=== PATIENT | female | born 2000 | race Caucasian/White ===

== ENCOUNTER 2021-01-19 11:42 | Emergency (ER) | payer MEDICAID ==
[~2021-01-19] VITALS: Ht 170.2 cm; Wt 61.0 kg
[2021-01-19] MEDS ORDERED: IBUPROFEN 400MG TABLET PO ONE (12:45)
[2021-01-19] MEDS ORDERED: BACITRACIN ZINC OINT UDPKT TOP ONE (12:45)
[2021-01-19] MEDS ORDERED: ACETAMINOPHEN 325MG TABLET PO ONE (12:45)
[2021-01-19 12:53] VITALS: BP 115/67
[2021-01-19] MEDS ORDERED: BO1 TP (13:49)
== END 2021-01-19 14:11 | disposition home or self-care (01) ==
LOC: ER 11:42
DX: T23.271A Burn of second degree of right wrist, initial encounter (principal); T23.222A Burn of second degree of single left finger (nail) except thumb, initial encounter; T59.0X1A Toxic effect of nitrogen oxides, accidental (unintentional), initial encounter; Y93.89 Activity, other specified; Y92.89 Other specified places as the place of occurrence of the external cause
CPT/HCPCS: 16000; 16020; 99283; 99284

== ENCOUNTER 2021-03-06 09:03 | Emergency (ER) | payer MEDICAID, OTHER ==
[~2021-03-06] VITALS: Ht 170.2 cm; Wt 61.0 kg
[~2021-03-06 09:03] MED LIST: BO1 TP
[2021-03-06] MEDS ORDERED: ONDANSETRON HCL 4MG/2ML INJ IV STA (09:43)
[2021-03-06] MEDS ORDERED: MORPHINE SULFATE 4 MG/ML CPJ (NOT FOR IM USE) IV STA (09:43)
[2021-03-06] MEDS ORDERED: SODIUM CHLORIDE 0.9% 1,000 ML IV ONE (09:45)
[2021-03-06 10:08] LABS: BASOPHILS % 0.6 % (0.0-2.0); EOSINOPHILS % 1.3 % (0.0-5.0); HEMATOCRIT. 39.8 % (36.0-48.0); HEMOGLOBIN. 13.6 g/dL (12.0-16.0); LYMPHOCYTES % 34.1 % (20.0-50.0); MEAN CORPUSCULAR HEMOGLOBIN 30.4 pg (28.0-32.0); MEAN CORPUSCULAR VOLUME 89.3 fL (81.0-99.0); MEAN PLATELET VOLUME 8.6 fl (7.4-10.4); MONOCYTES % 8.1 % (2.0-8.0); NEUTROPHILS % 55.9 % (40.0-76.0); PLATELET 241 x1000/uL (130-400); RED BLOOD CELL COUNT 4.46 mill/uL (4.2-5.4); RED CELL DISTRIBUTION WIDTH 15.1 % (11.6-14.6)
[2021-03-06 10:13] LABS: PROTHROMBIN TIME 11.1 sec (9.6-11.0)
[2021-03-06] MEDS ORDERED: MORPHINE SULFATE 2 MG/ML CPJ (NOT FOR IM USE) IV ONE ×2 (10:15)
[2021-03-06 10:20] LABS: CHLORIDE 108 mEq/L (98-107)
[2021-03-06 10:23] LABS: HCG SCREEN NEGATIVE
[2021-03-06 11:24] LABS: CLARITY URINE CLEAR (CLEAR); COLOR URINE YELLOW (YELLOW); KETONES URINE NEGATIVE (NEGATIVE); LEUKOCYTE ESTERASE URINE NEGATIVE (NEGATIVE); NITRITE URINE NEGATIVE (NEGATIVE); OCCULT BLOOD URINE NEGATIVE (NEGATIVE); PH URINE 6.5 (4.5-8.0); PROTEIN URINE NEGATIVE (NEGATIVE); SPECIFIC GRAVITY URINE 1.011 (1.005-1.030); UROBILINOGEN URINE 0.2 E.U./dL (0.2-1.0)
[2021-03-06] MEDS ORDERED: ONDA4TAB5 MT (13:59)
[2021-03-06] MEDS ORDERED: FAMO-135 MT (13:59)
[2021-03-06] MEDS ORDERED: ACET-2708 MT (14:00)
[2021-03-06 15:45] VITALS: BP 113/69
[2021-03-09 04:17] LABS: NEISSERIA GONORRHOEAE NAA Negative (Negative)
== END 2021-03-06 15:50 | disposition home or self-care (01) ==
LOC: ER 09:03
DX: K52.9 Noninfective gastroenteritis and colitis, unspecified (principal); E86.0 Dehydration; Z79.899 Other long term (current) drug therapy
CPT/HCPCS: 36415; 76830; 76856; 80053; 81003; 81025; 83690; 84703; 85025; 85610; 87491; 87591; 96361; 96374; 96375; 99285; J2270; J2405; J7030; Z7610